=== PATIENT | male | born 1945 | race Hispanic/Latino ===

== ENCOUNTER 2019-01-18 14:23 | Observation (INO) | payer BC, MEDICARE ==
[2019-01-18 15:03] LABS: BASO # 0.1 K/uL (0.0-0.2); BASO % 0.6 % (0.0-2.0); EOS % 0.2 % (0.0-4.0); HEMOGLOBIN 15.1 g/dL (12.0-18.0); LYMPH # 1.1 K/uL (1.0-4.3); LYMPH % 12.7 % (20.0-40.0); MEAN CELL VOLUME 90.4 fL (80.0-94.0); MEAN CORPUSCULAR HEMOGLOBIN 29.9 pg (27.0-31.0); MEAN CORPUSCULAR HGB CONC 33.1 g/dL (33.0-37.0); MEAN PLATELET VOLUME 8.5 fL (7.2-11.7); MONO # 0.5 K/uL (0.0-0.8); MONO % 5.2 % (0.0-10.0); NEUT # 7.1 K/uL (1.8-7.0); NEUT % 81.3 % (50.0-75.0); RBC 5.04 Mil/uL (4.40-5.90); RED CELL DISTRIBUTION WIDTH 13.8 % (11.5-14.5); WHITE BLOOD COUNT 8.7 K/uL (4.8-10.8)
--- NOTE | 2019-01-18 15:10 | RAD ---
Date of service: 01/18/2019 PROCEDURE: CHEST RADIOGRAPH, 1 VIEW HISTORY: chest pain COMPARISON: 09/18/2014 FINDINGS: LUNGS: No pulmonary infiltrate. l roughly 10 mm nodule upper right garcia thorax not evident on prior examination. Recommend further evaluation with computed tomography. No other pulmonary mass is identified. PLEURA: No pneumothorax or pleural fluid seen. CARDIOVASCULAR: No aortic atherosclerotic calcification present. Normal. OSSEOUS STRUCTURES: No significant abnormalities. VISUALIZED UPPER ABDOMEN: Normal. OTHER FINDINGS: None. IMPRESSION: 10 mm nodule upper right garcia thorax. Consider evaluation with computed tomography of the chest on a nonemergent basis.
[2019-01-18 15:12] LABS: INR 1.2; PROTHROMBIN TIME 12.6 SECONDS (9.7-12.2)
--- NOTE | 2019-01-18 15:19 | C.PDOC ---
History Of Present Illness 73 y/o male with a PMHx of HTN presents to the ED complaining of chest tightness that developed last night after eating [place] food. No associated SOB. Patient admits to eating large bites of food too quickly, and suddenly felt the food "wound not go down." He went home and self-induced vomiting. This morning, he awoke with continued chest/throat "tightness" and had recurrent vomiting. He took his usual daily aspirin and blood pressure medications, but then vomited after, prompting him to come in for evaluation. On arrival patient states he feels normal and all symptoms have resolved. He denies any nausea, chest tightness, diarrhea, abdominal pain, cough, wheezing, or URI symptoms. Patient is still tolerating PO liquids. He reports having a normal stress test years ago, and denies any cardiac disease. Time Seen by Provider: 01/18/19 14:37 Chief Complaint (Nursing): Chest Pain History Per: Patient History/Exam Limitations: no limitations Onset/Duration Of Symptoms: Hrs Current Symptoms Are (Timing): Gone Quality: Tightness, Other ("food stuck") Past Medical History Reviewed: Historical Data, Nursing Documentation, Vital Signs Vital Signs: Last Vital Signs Temp 98.3 F 01/18/19 14:30 Pulse 109 H 01/18/19 14:30 Resp 18 01/18/19 14:30 BP 185/76 H 01/18/19 14:30 Pulse Ox 96 01/18/19 14:30 - Medical History PMH: Benign Prostatic Hyperplasia, HTN, Peripheral Edema Other Surgeries: Left leg surgery, Left shoulder surgery Family History: States: No Known Family Hx - Social History Hx Tobacco Use: No Hx Alcohol Use: No Hx Substance Use: No - Immunization History Hx Tetanus Toxoid Vaccination: No Hx Influenza Vaccination: No Hx Pneumococcal Vaccination: No Review Of Systems Constitutional: Negative for: Fever ENT: Negative for: Nose Congestion Cardiovascular: Negative for: Chest Pain (at present) Respiratory: Negative for: Cough, Shortness of Breath Gastrointestinal: Negative for: Nausea, Vomiting (now resolved), Abdominal Pain, Diarrhea Musculoskeletal: Negative for: Back Pain Neurological: Negative for: Weakness, Numbness Physical Exam - Physical Exam Appears: Well, Non-toxic, No Acute Distress Skin: Warm, Dry, No Rash Head: Atraumatic, Normacephalic Eye(s): bilateral: Normal Inspection, PERRL, EOMI Oral Mucosa: Moist Throat: Normal (airway patent, uvula midline), No Erythema, No Exudate Neck: Normal ROM, Supple Chest: Symmetrical, No Tenderness Cardiovascular: Rhythm Regular, No Murmur Respiratory: Normal Breath Sounds, No Rales, No Rhonchi, No Wheezing Gastrointestinal/Abdominal: Soft, No Tenderness, No Distention Extremity: Bilateral: Atraumatic, Normal Color And Temperature, Normal ROM Neurological/Psych: Oriented x3, Normal Speech, Normal Cranial Nerves ED Course And Treatment - Laboratory Results Result Diagrams: 01/18/19 14:59 01/18/19 14:59 ECG: Interpreted By Me, Viewed By Me ECG Rhythm: Sinus Tachycardia Interpretation Of ECG: Normal intervals, Normal axis, No ST elevations Rate From EC O2 Sat by Pulse Oximetry: 96 (RA) Pulse Ox Interpretation: Normal - Other Rad CXR X-Ray: Viewed By Me, Read By Radiologist Interpretation: Accession No. : [id number]. Patient Name / ID : MONTY Smith / [id number]. Exam Date : 01/18/2019 14:44:44 ( Approved ). Study Comment : Sex / Age : M / 73Y. Creator : Crow Soto MD. Dictator : Crow Soto MD. Lumber Sorter Machine : Manager Shell : Crow Soto MD. Approver2 : Report Date : 01/18/2019 15:06:35. My Comment : . Date of service: 01/18/2019. PROCEDURE: CHEST RADIOGRAPH, 1 VIEW. HISTORY: chest pain. COMPARISON: 09/18/2014. FINDINGS: LUNGS: No pulmonary infiltrate. l roughly 10 mm nodule upper right garcia thorax not evident on prior examination. Recommend further evaluation with computed tomography. No other pulmonary mass is identified. PLEURA: No pneumothorax or pleural fluid seen. CARDIOVASCULAR: No aortic atherosclerotic calcification present. Normal. OSSEOUS STRUCTURES: No significant abnormalities. VISUALIZED UPPER ABDOMEN: Normal. OTHER FINDINGS: None. IMPRESSION: 10 mm nodule upper right garcia thorax. Consider evaluation with computed tomography of the chest on a nonemergent basis. Medical Decision Making Medical Decision Making: Impression: Chest tightness, now resolved Plan: - Labs - EKG - Chest x-ray Disposition Counseled Patient/Family Regarding: Studies Performed, Diagnosis - Disposition Disposition: HOSPITALIZED Disposition Time: 17:50 Condition: STABLE Forms: [employer] ([place]) - Clinical Impression Clinical Impression: Chest pain - Scribe Statement The provider has reviewed the documentation as recorded by the Franklin Benavides Provider Attestation: All medical record entries made by the Franklin were at my direction and person ally dictated by me. I have reviewed the chart and agree that the record accurately reflects my personal performance of the history, physical exam, medical decision making, and the department course for this patient. I have also personally directed, reviewed, and agree with the discharge instructions and disposition.
[2019-01-18 15:23] LABS: BLOOD UREA NITROGEN 21 mg/dL (9-20); CALCIUM 9.5 mg/dl (8.6-10.4); GFR NON-AFRICAN AMERICAN > 60
[2019-01-18 15:32] LABS: B-TYPE NATRIURETIC PEPTIDE 48.6 pg/mL (0-900)
[2019-01-18 15:36] LABS: ALB/GLOB RATIO 1.5 (1.0-2.1); ALT/SGPT 25 U/L (21-72); AST/SGOT 33 U/L (17-59)
[2019-01-18] MEDS ORDERED: Aspirin 325 mg EC Tablets PO STA (17:06)
[2019-01-18] MEDS ORDERED: Aspirin 325 mg EC Tablets PO ONE (17:35)
[2019-01-18 22:17] LABS: CK-MB 1.44 ng/mL (0.0-3.38)
[2019-01-19 08:41] LABS: CK-MB 1.86 ng/mL (0.0-3.38)
--- NOTE | 2019-01-19 09:27 | CP.PCM.CON ---
History of Present Illness - History of Present Illness History of Present Illness: Asked by Dr. Barba for a GI consultation on this patient. 73 year old male with history of HTN, BPH who presents to hospital with complaint of sudden onset midsternal chest discomfort and dysphagia which began yesterday following cons umption of chicken at [place] restaurant. Prior to this he was in usual state of health. He reports having immediate difficulty swallowing while at restaurant yesterday which required self-induced vomiting in the restroom. He notes associated mid-sternal discomfort and two more episodes of vomiting when he returned home. He denies fever/chills, weight loss, rectal bleeding, change in bowel habits, odynophagia, diaphoresis, numbness/tingling of extremities, or visual abnormalities. He notes intermittent similar episodes of dysphagia over the past 6 months which he believes is related to improper chewing of food. He was able to tolerate eggs and oatmeal this morning without difficulty and is no longer having any chest pain. No prior endoscopic evaluation. Social history: non-smoker, no ETOH use Family history: reviewed, patient denies history of GI malignancies Review of Systems - Review of Systems Review of Systems: - All other comprehensive 12 point review of systems performed, negative - Cardiovascular Cardiovascular: Chest Pain - Respiratory Respiratory: absent: Cough, Dyspnea, Hemoptysis, Dyspnea on Exertion, Wheezing, Snoring, Stridor, Pain on Inspiration, Chest Congestion, Excessive Mucous Production, Change in Mucous Color, Pain with Coughing, Other - Gastrointestinal Gastrointestinal: Dysphagia - Musculoskeletal Musculoskeletal: absent: Abnormal Gait, Arthralgias, Atrophy, Back Pain, Deformity, Joint Swelling, Limited Range of Motion, Loss of Height, Muscle Cramps, Muscle Weakness, Myalgias, Neck Pain, Numbness, Radiating Pain into Sen b, Stiffness, Tingling, Other - Neurological Neurological: absent: Abnormal Gait, Abnormal Hearing, Abnormal Movements, Abnormal Speech, Behavioral Changes, Burning Sensations, Confusion, Convulsions, Disequilibrium, Dizziness, Numbness, Focal Weakness, Frequent Falls, Headaches, Lack of Coordination, Loss of Vision, Memory Loss, Paresthesias, Radicular Pain, Restless Legs, Sensory Deficit, Syncope, Tingling, Tremor, Vertigo, Weakness, Other Visual Disturbances, Other Past Patient History - Past Social History Smoking Status: Never Smoked - CARDIAC Hx Hypertension: Yes Hx Peripheral Edema: Yes - PSYCHIATRIC Hx Substance Use: No - SURGICAL HISTORY Other/Comment: LEG SX - ANESTHESIA Hx Anesthesia: Yes Hx Anesthesia Reactions: No Meds Allergies/Adverse Reactions: Allergies Allergy/AdvReac Type Severity Reaction Status Date / Time No Known Allergies Allergy Verified 01/18/19 14:34 - Medications Medications: Current Medications Amlodipine Besylate (Norvasc) 10 mg PO DAILY [facility] Aspirin (Aspirin Chewable) 81 mg PO DAILY [facility] Clopidogrel Bisulfate (Plavix) 75 mg PO DAILY [facility] Enalapril Maleate (Vasotec) 10 mg PO DAILY [facility] Enoxaparin Sodium (Lovenox) 40 mg SC DAILY [facility] Hydrochlorothiazide (Hydrodiuril) 25 mg PO DAILY [facility] Influenza Virus Vaccine (Flucelvax Quad [id number] Syr) 60 mcg IM .ONCE ONE Stop: 01/19/19 10:01 Pneumococcal Polyvalent Vaccine (Pneumovax 23 Vaccine) 0.5 ml IM .ONCE ONE Stop: 01/19/19 10:01 Tamsulosin HCl (Flomax) 0.4 mg PO DAILY [facility] Physical Exam - Constitutional Appears: Non-toxic, No Acute Distress - Head Exam Head Exam: NORMAL INSPECTION - Eye Exam Eye Exam: EOMI, Normal appearance, PERRL - ENT Exam ENT Exam: Mucous Membranes Moist - Respiratory Exam Respiratory Exam: Clear to Auscultation Bilateral - Cardiovascular Exam Cardiovascular Exam: REGULAR RHYTHM, +S1, +S2 - GI/Abdominal Exam GI & Abdominal Exam: Normal Bowel Sounds, Soft Additional comments: non tender to palpation in four quadrants no palpable hepato/splenomegaly - Extremities Exam Extremities exam: Positive for: normal inspection - Neurological Exam Neurological exam: Alert, CN II-XII Intact, Oriented x3, Reflexes Normal - Psychiatric Exam Psychiatric exam: Normal Affect, Normal Mood - Skin Skin Exam: Dry, Intact, Normal Color, Warm Results - Vital Signs Recent Vital Signs: Last Vital Signs Temp 98.6 F 01/19/19 07:00 Pulse 79 01/19/19 07:30 Resp 20 01/19/19 07:00 BP 125/82 01/19/19 07:00 Pulse Ox 96 01/19/19 07:00 - Labs Result Diagrams: 01/18/19 14:59 01/18/19 14:59 Labs: Laboratory Results - last 24 hr 01/18/19 01/18/19 01/18/19 14:59 14:59 14:59 WBC 8.7 RBC 5.04 Hgb 15.1 Hct 45.5 MCV 90.4 MCH 29.9 MCHC 33.1 RDW 13.8 Plt Count 318 MPV 8.5 Neut % (Auto) 81.3 H Lymph % (Auto) 12.7 L Lamb % (Auto) 5.2 Eos % (Auto) 0.2 Baso % (Auto) 0.6 Neut # (Auto) 7.1 H Lymph # (Auto) 1.1 Lamb # (Auto) 0.5 Eos # (Auto) 0.0 Baso # (Auto) 0.1 PT 12.6 H INR 1.2 APTT 28 D-Dimer, Quantitative Sodium 137 Potassium 4.4 Chloride 101 Carbon Dioxide 25 Anion Gap 15 BUN 21 H Creatinine 0.7 L Est GFR ( Amer) > 60 Est GFR (Non-Af Amer) > 60 Random Glucose 130 H Calcium 9.5 Magnesium 2.2 Total Bilirubin 1.0 AST 33 ALT 25 Alkaline Phosphatase 46 Total Creatine Kinase CK-MB (Mass) Troponin I < 0.0120 NT-Pro-B Natriuret Pep 48.6 Total Protein 8.4 H Albumin 5.0 Globulin 3.3 Albumin/Globulin Ratio 1.5 01/18/19 01/18/19 01/19/19 21:08 21:08 08:06 WBC RBC Hgb Hct MCV MCH MCHC RDW Plt Count MPV Neut % (Auto) Lymph % (Auto) Lamb % (Auto) Eos % (Auto) Baso % (Auto) Neut # (Auto) Lymph # (Auto) Lamb # (Auto) Eos # (Auto) Baso # (Auto) PT INR APTT D-Dimer, Quantitative < 200 Sodium Potassium Chloride Carbon Dioxide Anion Gap BUN Creatinine Est GFR ( Amer) Est GFR (Non-Af Amer) Random Glucose Calcium Magnesium Total Bilirubin AST ALT Alkaline Phosphatase Total Creatine Kinase 107 112 CK-MB (Mass) 1.44 1.86 Troponin I < 0.0120 < 0.0120 NT-Pro-B Natriuret Pep Total Protein Albumin Globulin Albumin/Globulin Ratio Assessment & Plan - Assessment and Plan (Free Text) Assessment: HTN BPH Chest pain, dysphagia, vomiting - resolved Plan: - Full liquid diet as tolerated - Cardiac enzymes negative x 3, index of suspicion for ACS low, will follow up cardiology recommendations - Given recurrent episodes of dysphagia in elderly patient without clear etiology, would suggest EGD evaluation to rule out esophagitis, stricture, or underlying neoplasm - Continue with PPI therapy - NPO after midnight
[2019-01-19] MEDS: Pantoprazole 40 mg EC Tab PO SCH (09:39)
[2019-01-19] MEDS ORDERED: Pneumococcal 23-Valent Vaccine IM ONE (10:00)
[2019-01-19] MEDS ORDERED: Enoxaparin 40 mg Syringe SC SCH (10:00)
[2019-01-19] MEDS ORDERED: Influenza Vaccine 60 mcg/0.5 mL SYR (4YR UP) IM ONE (10:00)
[2019-01-19 14:20] LABS: CK-MB 1.76 ng/mL (0.0-3.38)
--- NOTE | 2019-01-19 15:30 | CP.PCM.HP ---
Past Patient History - Past Social History Smoking Status: Never Smoked - CARDIAC Hx Hypertension: Yes Hx Peripheral Edema: Yes - PSYCHIATRIC Hx Substance Use: No - SURGICAL HISTORY Other/Comment: LEG SX - ANESTHESIA Hx Anesthesia: Yes Hx Anesthesia Reactions: No Meds Allergies/Adverse Reactions: Allergies Allergy/AdvReac Type Severity Reaction Status Date / Time No Known Allergies Allergy Verified 01/18/19 14:34 Physical Exam - Constitutional Appears: Well - Head Exam Head Exam: ATRAUMATIC, NORMAL INSPECTION, NORMOCEPHALIC - Eye Exam Eye Exam: EOMI, Normal appearance, PERRL Pupil Exam: NORMAL ACCOMODATION, PERRL - ENT Exam ENT Exam: Mucous Membranes Moist, Normal Exam - Neck Exam Neck exam: Positive for: Normal Inspection - Respiratory Exam Respiratory Exam: Decreased Breath Sounds - Cardiovascular Exam Cardiovascular Exam: REGULAR RHYTHM, +S1, +S2 - GI/Abdominal Exam GI & Abdominal Exam: Diminished Bowel Sounds, Soft - Rectal Exam Rectal Exam: Deferred Results - Vital Signs Recent Vital Signs: Last Vital Signs Temp 98.6 F 01/19/19 07:00 Pulse 63 01/19/19 11:33 Resp 20 01/19/19 07:00 BP 129/84 01/19/19 09:40 Pulse Ox 96 01/19/19 07:00 - Labs Result Diagrams: 01/18/19 14:59 01/18/19 14:59 Labs: Laboratory Results - last 24 hr 01/18/19 01/18/19 01/18/19 14:59 21:08 21:08 D-Dimer, Quantitative < 200 Sodium 137 Potassium 4.4 Chloride 101 Carbon Dioxide 25 Anion Gap 15 Magnesium 2.2 AST 33 ALT 25 Alkaline Phosphatase 46 Total Creatine Kinase 107 CK-MB (Mass) 1.44 Troponin I < 0.0120 < 0.0120 NT-Pro-B Natriuret Pep 48.6 Total Protein 8.4 H Albumin 5.0 Globulin 3.3 Albumin/Globulin Ratio 1.5 01/19/19 01/19/19 08:06 13:44 D-Dimer, Quantitative Sodium Potassium Chloride Carbon Dioxide Anion Gap Magnesium AST ALT Alkaline Phosphatase Total Creatine Kinase 112 138 CK-MB (Mass) 1.86 1.76 Troponin I < 0.0120 < 0.0120 NT-Pro-B Natriuret Pep Total Protein Albumin Globulin Albumin/Globulin Ratio
--- NOTE | 2019-01-20 02:57 | CON ---
DATE: 01/19/2019 REASON FOR CONSULTATION: Atypical chest discomfort. HISTORY OF PRESENT ILLNESS: The patient is a 73-year-old male, who denies any prior cardiac history, presents because of chest tightness, which he attributed to eating a large of bolus of foods while in a restaurant, which included bread and chicken simultaneously until the food would not go down and experienced vomiting as well as tightness in the chest. The patient stated that he is always a fast eater, but he does not recall having similar episode in the past. The patient at the time of my evaluation denied any chest pain. The patient denies any recent loss of weight or difficulty swallowing in the past. SOCIAL HISTORY: Nonsmoker and nondrinker. MEDICATIONS: Aspirin 81 mg once a day, Flomax 0.4 mg once a day, hydrochlorothiazide 25 mg once a day, Lovenox 40 mg subcutaneously once a day, Norvasc 10 mg once a day, Plavix 75 mg once a day, Protonix 40 mg once a day, and Vasotec 10 mg once a day. REVIEW OF SYSTEMS: No diarrhea, no fever or chills, and no palpitations, dizziness, or syncope. PHYSICAL EXAMINATION: GENERAL: The patient is an elderly male, who does not appear to be in acute distress. VITAL SIGNS: Blood pressure 125/82, heart rate 76, temperature 98.6, and respirations 20. HEENT: Normocephalic. CHEST: Clear. HEART: S1 and S2, regular. ABDOMEN: Soft. EXTREMITIES: No edema. LABORATORY DATA: A total of 4 sets of troponins are negative. SMA-7: Sodium 137, potassium 4.4, chloride 101, CO2 of 25, glucose 130, BUN 21, and creatinine 0.7, D-dimer is within normal limits. INR and PTT are within normal limits. Hemoglobin and hematocrit, white count, and platelet count are within normal limits. Chest x-ray showed a 10-mm nodule, right upper hemithorax. Consider evaluation with CT of the chest on an emergent basis. This patient was evaluated by Dr. Schneider and EGD was recommended and the patient will be kept n.p.o. after midnight. EKG is not available in the chart or in [facility] [employer] database, and I will be ordering one unless I locate the original EKG. ASSESSMENT: 1. Atypical chest pain, myocardial infarction is ruled out. 2. History of hypertension. 3. Benign prostatic hypertrophy. 4. Rule out esophageal obstruction. RECOMMENDATIONS: Continue aspirin 81 mg once a day, Flomax 0.4 mg once a day, hydrochlorothiazide 25 mg once a day, Norvasc at 10 mg once a day, Plavix 75 mg once a day, and Lasix 10 mg once a day. I will obtain an echocardiographic study and try to locate the EKG, and if it is not located, I will request a repeat EKG. Vazquez Benjamin MD
--- NOTE | 2019-01-20 08:16 | CP.PCM.PN ---
Subjective - Date & Time of Evaluation Date of Evaluation: 01/20/19 Time of Evaluation: 08:16 - Subjective Subjective: 73 year old male with history of hypertension and BPH who presents to hospital with complaint of sudden onset midsternal chest discomfort and dysphagia which began yesterday following consumption of chicken at [place] restaurant. He shannon cribed the pain as sharp in nature with no radiation to other areas. Patient denies any recent weight loss, shortness of breath, fevers, chills, nausea, abdominal pain, or any other complaints. PMD: Dr. Sutherland Medical history: htn , bph Social history: non-smoker, no ETOH use. Denies illicit drug use. Medications: Norvasc, Hydrochlorothiazide. Objective - Vital Signs/Intake and Output Vital Signs (last 24 hours): Temp Pulse Resp BP Pulse Ox 98.0 F 73 18 126/73 95 01/19/19 23:19 01/20/19 07:52 01/19/19 23:19 01/19/19 23:19 01/19/19 23:19 - Medications Medications: Current Medications Amlodipine Besylate (Norvasc) 10 mg PO DAILY [facility] Last Admin: 01/19/19 09:39 Dose: 10 mg Aspirin (Aspirin Chewable) 81 mg PO DAILY [facility] Last Admin: 01/19/19 09:39 Dose: 81 mg Clopidogrel Bisulfate (Plavix) 75 mg PO DAILY [facility] Enalapril Maleate (Vasotec) 10 mg PO DAILY [facility] Last Admin: 01/19/19 09:40 Dose: 10 mg Enoxaparin Sodium (Lovenox) 40 mg SC DAILY [facility] Last Admin: 01/19/19 09:40 Dose: Not Given Hydrochlorothiazide (Hydrodiuril) 25 mg PO DAILY [facility] Last Admin: 01/19/19 09:39 Dose: 25 mg Pantoprazole Sodium (Protonix Ec Tab) 40 mg PO DAILY [facility] Last Admin: 01/19/19 09:39 Dose: 40 mg Tamsulosin HCl (Flomax) 0.4 mg PO DAILY [facility] Last Admin: 01/19/19 09:39 Dose: 0.4 mg - Labs Labs: 01/18/19 14:59 01/18/19 14:59 PT 12.6 SECONDS (9.7-12.2) H 01/18/19 14:59 INR 1.2 01/18/19 14:59 APTT 28 SECONDS (21-34) 01/18/19 14:59 - Head Exam Head Exam: ATRAUMATIC, NORMAL INSPECTION - Eye Exam Eye Exam: EOMI, Normal appearance, PERRL Pupil Exam: NORMAL ACCOMODATION - ENT Exam ENT Exam: Mucous Membranes Moist, Normal Oropharynx - Neck Exam Neck Exam: Normal Inspection - Respiratory Exam Respiratory Exam: Clear to Ausculation Bilateral, NORMAL BREATHING PATTERN. absent: Prolonged Expiratory Phase, Respiratory Distress - Cardiovascular Exam Cardiovascular Exam: REGULAR RHYTHM, +S1, +S2 - GI/Abdominal Exam GI & Abdominal Exam: Soft, Normal Bowel Sounds. absent: Hyperactive Bowel Sounds - Extremities Exam Extremities Exam: Full ROM. absent: Pedal Edema - Neurological Exam Neurological Exam: Alert, Awake, Normal Gait, Oriented x3 - Psychiatric Exam Psychiatric exam: Normal Affect, Normal Mood - Skin Skin Exam: Dry, Intact, Normal Color, Warm Assessment and Plan - Assessment and Plan (Free Text) Assessment: 73 year old male with a past medical history of hypertension and bph admitted for chest pain. Plan: 1.Chest pain r/o acs EKG: sinus tachy @108 Troponin (-)x4 Less likely cardiac origin for chest pain. Cardiology Dr. Benjamin consulted---> Help appreciated. 2.Dysphagia GI Dr. Mckeon consulted---> Help appreciated :- Given recurrent episodes of dysphagia in elderly patient without clear etiology, would suggest EGD evaluation to rule out esophagitis, stricture, or underlying neoplasm EGD scheduled for today. Will f/u with results. Clear liquid diet Continue PPI therapy 3.hx of Hypertension Continue Norvasc 10mg PO Daily 4.hx of BPH Continue Flomax .4mg PO Daily 5. 10 mm pulmonary nodule. CXR:10 mm nodule upper right garcia thorax. Consider evaluation with computed tomography of the chest on a nonemergent basis. Chest ct ordered. Patient refused this morning after EGD. Patient states he would prefer to follow up with primary doctor. Advised patient that he should get the test here at the possibility of it being malignant, however he denied. I discussed risks of leaving without a complete workup including , and he understood. PPX Protonix 40mg PO Daily Lovenox 40mg SC Daily All management per Dr. Mic Barba Dispo: Patient to be discharged home. Discharge Instructions: 1.F/u with PMD within 5 days of discharge. 2.F/u with GI within 5 days of discharge. 3. F/u with PMD for chest ct for 10mm lung nodule found on chest xray. 4.Return to hospital for any new or worsening symptoms. Medications: 1.Aspirin 81mg PO Daily, #30, No refills 2.Protonix 40mg PO Daily, #30, No refills 3.Norvasc 10mg PO Daily, #30, No refills 4. bph .4mg PO Daily, #30, No refills 5.Vasotec 10mg PO Daily, #30, No refills 6. Hydrochlorothiazide 25mg PO Daily, #30, No refills. Ramos Gustafson, PGY-2
[2019-01-20] MEDS ORDERED: Lactated Ringer's 1,000 ML IV ONE (08:25)
[2019-01-20] MEDS ORDERED: Lidocaine Hydrochloride 10 ML INJ ONE (08:28)
[2019-01-20] MEDS ORDERED: Propofol 10 mg/ml Inj (20 ML) ONE (08:28)
[2019-01-20 09:02] VITALS: TEMP 97.8
--- NOTE | 2019-01-20 09:17 | CP.PCM.PN ---
Subjective - Date & Time of Evaluation Date of Evaluation: 01/20/19 Time of Evaluation: 09:14 - Subjective Subjective: Patient seen and examined, resting comfortably in bed. No acute events overnight. He denies abdominal pain, nausea, vomiting, fever/chills. s/p EGD today showing erosive esophagitis, hiatal hernia, gastritis, duodenal erosions. Objective - Vital Signs/Intake and Output Vital Signs (last 24 hours): Temp Pulse Resp BP Pulse Ox 97.8 F 64 14 101/60 95 01/20/19 08:52 01/20/19 08:52 01/20/19 08:52 01/20/19 08:52 01/20/19 08:52 - Medications Medications: Current Medications Amlodipine Besylate (Norvasc) 10 mg PO DAILY [facility] Last Admin: 01/19/19 09:39 Dose: 10 mg Aspirin (Aspirin Chewable) 81 mg PO DAILY [facility] Last Admin: 01/19/19 09:39 Dose: 81 mg Clopidogrel Bisulfate (Plavix) 75 mg PO DAILY [facility] Enalapril Maleate (Vasotec) 10 mg PO DAILY [facility] Last Admin: 01/19/19 09:40 Dose: 10 mg Enoxaparin Sodium (Lovenox) 40 mg SC DAILY [facility] Last Admin: 01/19/19 09:40 Dose: Not Given Hydrochlorothiazide (Hydrodiuril) 25 mg PO DAILY [facility] Last Admin: 01/19/19 09:39 Dose: 25 mg Pantoprazole Sodium (Protonix Ec Tab) 40 mg PO DAILY [facility] Last Admin: 01/19/19 09:39 Dose: 40 mg Tamsulosin HCl (Flomax) 0.4 mg PO DAILY [facility] Last Admin: 01/19/19 09:39 Dose: 0.4 mg - Labs Labs: 01/18/19 14:59 01/18/19 14:59 PT 12.6 SECONDS (9.7-12.2) H 01/18/19 14:59 INR 1.2 01/18/19 14:59 APTT 28 SECONDS (21-34) 01/18/19 14:59 Assessment and Plan - Assessment and Plan (Free Text) Assessment: HTN BPH Atypical chest pain Dysphagia - s/p EGD today showing erosive esophagitis, hiatal hernia, gastritis, and duodenal erosions Plan: - Advance diet as tolerated - Follow up EGD biopsy results - Continue with PPI therapy - Follow up cardiology recommendations - Patient would benefit from additional outpatient follow up, no further planned GI interventions at this time. Will sign off case, please reconsult as necessary, thank you.
[2019-01-20 09:28] VITALS: RESP 19; O2SAT 98
[2019-01-20] MEDS: Pantoprazole 40 mg EC Tab PO SCH (10:16)
[2019-01-20 10:18] VITALS: BP 128/76
[2019-01-20] MEDS ORDERED: Iodixanol 320 MG/ML 100 ML BOTTLE IV ONE (10:54)
[2019-01-20 12:29] VITALS: PULSE 88
--- NOTE | 2019-01-20 17:53 | PN ---
DATE: 01/20/2019 SUBJECTIVE: The patient denies any chest pain today or shortness of breath. He does not appear to be in any distress. PHYSICAL EXAMINATION: VITAL SIGNS: Blood pressure 128/76, heart rate 88, temperature 97.8, respirations 19. The patient did not allow me to perform physical examination on him stating that his heart and he never had problem with his heart. LABORATORY DATA: EGD revealed erosive gastritis, duodenitis, and . Biopsy was taken. I did review the EKG in the chart, which revealed sinus tachycardia at 103 and no ischemic EKG changes. ASSESSMENT: 1. Atypical chest pain, myocardial infraction was ruled out. 2. Erosive gastritis, duodenitis. 3. Benign prostatic hypertrophy. 4. History of hypertension. RECOMMENDATIONS: Continue aspirin, hydrochlorothiazide, subcutaneous Lovenox and Vasotec. It is not clear what was indication of Plavix and the patient is very uncooperative. The patient was recommended to undergo echocardiographic study, however, he adamantly objected to this due to the fact that he has to stay more to have an echocardiographic study. I recommended that if the patient declines to have his cardiac work up that the patient can sign against medical advice. Vazquez Benjamin MD
--- NOTE | 2019-01-20 18:00 | CP.PCM.CON ---
History of Present Illness - History of Present Illness History of Present Illness: Patient is a 73 y/o male with a PMH of HTN who was admitted 01/18/29 with complaints of chest/throat "tightness" and recurrent vomiting which he states resolved after he came to the ED that day. Cardiology workup yielded no problems. EGD was done 01/20 which showed erosive gastritis, duodenitis, irregular Z lines. Pulm consulted for 10mm nodule upper right hemithorax found incidentally on CXR during cardiac workup. Patient denies dyspnea, cough, sputum production, chest pain, nausea, vomiting. States he feels well and would like to go home today. Physical Exam Gen: AAOx3 Cardio: RRR, no murmur Pulm: CTA b/l Abd: Soft, non-distended A/P Lung nodule - CXR 01/18 showed 10mm nodule upper right hemithorax - Patient is stable for discharge today. Can be worked up outpatiet. Consider CT Past Patient History - Past Social History Smoking Status: Never Smoked - CARDIAC Hx Hypertension: Yes Hx Peripheral Edema: Yes - PSYCHIATRIC Hx Substance Use: No - SURGICAL HISTORY Other/Comment: LEG SX - ANESTHESIA Hx Anesthesia: Yes Hx Anesthesia Reactions: No Meds Home Medications: Home Medication List Medication Instructions Recorded Confirmed Type Aspirin [Ecotrin] 81 mg PO DAILY #30 tablet. 01/20/19 Rx Enalapril Maleate [Vasotec] 10 mg PO DAILY #30 tab 01/20/19 Rx Pantoprazole Sodium [Protonix] 40 mg PO DAILY #30 ect 01/20/19 Rx Tamsulosin [Flomax] 0.4 mg PO DAILY #30 cap 01/20/19 Rx amLODIPine [Norvasc] 10 mg PO DAILY #30 tab 01/20/19 Rx hydroCHLOROthiazide [Hydrodiuril] 25 mg PO DAILY #30 tab 01/20/19 Rx Allergies/Adverse Reactions: Allergies Allergy/AdvReac Type Severity Reaction Status Date / Time No Known Allergies Allergy Verified 01/18/19 14:34 Results - Vital Signs Recent Vital Signs: Last Vital Signs Temp 97.8 F 01/20/19 08:52 Pulse 88 01/20/19 11:45 Resp 19 01/20/19 09:07 BP 128/76 01/20/19 10:16 Pulse Ox 98 01/20/19 15:25 - Labs Result Diagrams: 01/18/19 14:59 01/18/19 14:59
--- NOTE | 2019-01-21 19:31 | CARD ---
APPROVED REPORT Date of service: 01/18/2019 EKG Measurement Heart [id number] <Conclusion> Sinus tachycardia Possible Left atrial enlargement Borderline ECG
== END 2019-01-20 17:10 | disposition home or self-care (01) ==
LOC: C.ER 14:23 → C.9E 17:57 → C.6T 18:08
PROVIDERS: ADMIT Internal Medicine Nephrology; ATTEND Internal Medicine Nephrology
DX: R07.89 Other chest pain (principal); I10 Essential (primary) hypertension; K44.9 Diaphragmatic hernia without obstruction or gangrene; K22.10 Ulcer of esophagus without bleeding; N40.0 Benign prostatic hyperplasia without lower urinary tract symptoms; K21.0 Gastro-esophageal reflux disease with esophagitis; K29.60 Other gastritis without bleeding; K29.80 Duodenitis without bleeding; K26.9 Duodenal ulcer, unspecified as acute or chronic, without hemorrhage or perforation; B96.81 Helicobacter pylori [H. pylori] as the cause of diseases classified elsewhere; Z79.82 Long term (current) use of aspirin; Z79.899 Other long term (current) drug therapy
CPT/HCPCS: 36415; 43239; 71045; 80053; 83735; 83880; 84484; 85025; 85378; 85610; 85730; 88305; 88312; 88342; 93005; 99283; G0378; J7120